=== PATIENT | male | born 1965 | race Caucasian/White ===

== ENCOUNTER → 2021-08-02 | Outpatient (CLI) | payer OTHER ==
[~2021-08-02] MED LIST: AMOXICILLIN500 MG PO; DAYPRO600 M1 PO; KEFLEX500 M1 PO; MOTRIN800 MG PO; NKHM; SKELAXIN800 MG PO
== END | disposition home or self-care (01) ==
LOC: COVID19 15:17
PROVIDERS: ATTEND Internal Medicine
DX: U07.1 COVID-19 (principal)